=== PATIENT | female | born 1980 | race Caucasian/White ===

== ENCOUNTER 2018-07-13 18:34 | Emergency (ER) | payer MEDICAID ==
[~2018-07-13] VITALS: Ht 162.6 cm; Wt 73.1 kg
[2018-07-13 18:39] VITALS: BP 127/77
--- NOTE | 2018-07-13 18:42 | NUR ---
PT AMBULATES TO BED 9
[2018-07-13] MEDS ORDERED: MORPHINE SULFATE 4 MG/ML SYR IVP ONE (18:45)
[2018-07-13] MEDS ORDERED: KETOROLAC 30 MG/ML VIAL IVP ONE (18:45)
[2018-07-13] MEDS ORDERED: ONDANSETRON 4 MG/2 ML VIAL IVP ONE (18:45)
--- NOTE | 2018-07-13 18:45 | NUR ---
Patient being evaluated by physician at bedside.
--- NOTE | 2018-07-13 18:45 | NUR ---
38Y/F BIB DAUGHTER WITH C/O RT LOWER BACK PAIN RADIATING TO RLQ WITH DIZZINESS; PT SKIN IS INTACT, PINK/WARM/DRY; AAOX4, PERRL, WITH EVEN AND STEADY GAIT; LUNGS CLEAR BL, BREATHING UNLABORED; HR EVEN AND REGULAR, BL PERIPHERAL PULSES PRESENT; BS ACTIVE X4, NO TENDERNESS TO PALPATION, NO HEPATOSPLENOMEGALLY PALPATED, RESONANT TO PERCUSSION; PT DENIES ANY FEVER, CP, SOB, OR COUGH AT THIS TIME; PT STATES 8/10 PAIN AT THIS TIME; VSS; PATIENT POSITIONED FOR COMFORT; HOB ELEVATED; BEDRAILS UP X1; BED DOWN. HX; DENIES RX; DENIES
--- NOTE | 2018-07-13 19:00 | NUR ---
PT TAKEN TO CT VIA WHEELCHAIR
[2018-07-13] MEDS: NACL 0.9% 1,000 ML IV SCH ×2 (19:02→19:03)
[2018-07-13 19:05] LABS: BASOPHILS % (AUTO) 0.5 % (0.0-2.0); EOSINOPHILS # (AUTO) 0.4 K/uL (0-0.4); EOSINOPHILS % (AUTO) 4.5 % (0.0-4.0); HEMATOCRIT 43.6 % (36-48); HEMOGLOBIN 14.9 g/dL (12.0-16.0); LYMPHOCYTES # (AUTO) 2.5 K/uL (2.5-16.5); LYMPHOCYTES % (AUTO) 26.9 % (20.5-51.1); MEAN CORPUSCULAR HEMOGLOBIN 31 pg (27-31); MEAN CORPUSCULAR HGB CONC 34 g/dL (33-37); MEAN CORPUSCULAR VOLUME 91.7 fL (80-94); MONOCYTES # (AUTO) 0.5 K/uL (0.8-1.0); NEUTROPHILS # (AUTO) 5.8 K/uL (1.8-7.7); NEUTROPHILS % (AUTO) 63.1 % (42.2-75.2); PLATELET COUNT (AUTO) 261 K/uL (140-450); RED BLOOD CELL COUNT(AUTO) 4.75 MIL/uL (4.20-5.40); RED CELL DISTRIBUTION WIDTH 12.4 % (11.6-13.7); WHITE BLOOD COUNT (AUTO) 9.1 K/uL (4.8-10.8)
--- NOTE | 2018-07-13 19:09 | NUR ---
REPORT RECIEVED FROM YAHAIRA MOLINA. ASSUMED CARE OF PT.
--- NOTE | 2018-07-13 19:13 | NUR ---
PT BACK FROM CT
[2018-07-13 19:20] LABS: ANION GAP 11.5 (8-16); CREATININE 0.7 mg/dL (0.6-1.3); POTASSIUM 3.5 mmol/L (3.5-5.1)
[2018-07-13 19:26] LABS: ALBUMIN 3.4 g/dL (3.4-5.0); TOTAL BILIRUBIN 0.3 mg/dL (0.0-1.0)
[2018-07-13 19:35] LABS: APPEARANCE,URINE CLEAR (CLEAR); BILIRUBIN,URINE NEGATIVE (NEGATIVE); BLOOD, URINE TRACE-L (NEGATIVE); COLOR,URINE YELLOW (YELLOW); LEUKOCYTE ESTERASE ,URINE TRACE (NEGATIVE); NITRITE, URINE NEGATIVE (NEGATIVE); UGLUCOSE NEGATIVE (NEGATIVE)
[2018-07-13 19:36] LABS: RBC,URINE 3-10 (FEW) /HPF (0-5); WBC,URINE 0-5 (RARE) /HPF (0-5)
--- NOTE | 2018-07-13 20:07 | NUR ---
PT TAKEN TO ULTRASOUND VIA WHEELCHAIR
[2018-07-13 21:04] VITALS: BP 125/75
--- NOTE | 2018-07-13 21:06 | NUR ---
Patient discharged with v/s stable. Written and verbal after care instructions given and explained. Patient alert, oriented and verbalized understanding of instructions. Ambulatory with steady gait. All questions addressed prior to discharge. ID band removed. Patient advised to follow up with PMD. Rx of ZOFRAN, MOTRIN AND TRAMADOL given. Patient educated on indication of medication including possible reaction and side effects. Opportunity to ask questions provided and answered.
== END 2018-07-13 21:04 | disposition home or self-care (01) ==
LOC: MED 18:34
DX: R10.2 Pelvic and perineal pain (principal); M54.5 Low back pain; R11.0 Nausea
CPT/HCPCS: 36415; 74176; 76856; 80053; 81001; 81025; 82150; 83690; 84703; 85025; 96374; 96375; 99285; J1885; J2270; J2405; Q0092

== ENCOUNTER 2019-07-29 19:51 | Emergency (ER) | payer MEDICAID ==
[~2019-07-29] VITALS: Ht 162.6 cm; Wt 69.9 kg
[2019-07-29 19:59] VITALS: BP 113/75
--- NOTE | 2019-07-29 20:01 | NUR ---
TO LOBBY A/W BED AMBULATORY
--- NOTE | 2019-07-29 20:23 | NUR ---
PT AMBULATED TO [facility]
--- NOTE | 2019-07-29 20:35 | NUR ---
PT AMBULATED TO BED 04.
--- NOTE | 2019-07-29 20:40 | NUR ---
39/F PRESENTS WITH DAUGHTER, C/O INTERMITTENT EPISODES OF R CHEEK NUMBNESS/TINGLING/PARESTHESIA X2 WEEKS. PT DENIES HEADACHE OR ANY PAIN AT THIS TIME. PT AWAKE AND ALERT, PERRLA 3MM, SPEECH CLEAR, AMBULATORY WITH STEADY GAIT, RR EVEN AND UNLABORED. NO FACIAL DROOP, NO ARM OR LEG DRIFT. +2 ALL PERIPHERAL STRENGTH. DENIES MED HX OR RX. OTC MOTRIN THIS AM FOR HEADACHE.
--- NOTE | 2019-07-29 21:14 | NUR ---
Dr. Yao examining patient.
[2019-07-29 21:18] VITALS: BP 113/75
--- NOTE | 2019-07-29 21:18 | NUR ---
Patient discharged with v/s stable. Written and verbal after care instructions given and explained. Patient verbalized understanding. Ambulatory with steady gait. All questions addressed prior to discharge. Advised to follow up with PMD. DR. NEHEMIAS DISCHARGED PT
== END 2019-07-29 21:18 | disposition home or self-care (01) ==
LOC: MED 19:51
DX: F41.9 Anxiety disorder, unspecified (principal); Z86.79 Personal history of other diseases of the circulatory system
CPT/HCPCS: 99281; 99283